=== PATIENT | female | born 1950 | race Caucasian/White ===

== ENCOUNTER 2017-06-09 20:52 | Emergency (ER) | payer BC ==
[~2017-06-09] VITALS: Ht 160 cm; Wt 66.4 kg
[2017-06-09] MEDS ORDERED: ASPIRIN 32325 MG/TAB PO (21:19)
[2017-06-09] MEDS ORDERED: CLARITIN 1010 MG/TAB PO (21:21)
[2017-06-09] MEDS ORDERED: PRILOSEC10 MG PO (21:22)
[2017-06-09 21:54] LABS: BASO # 0.1 (0.0-0.2); BASO % 0.7 % (0.0-2.0); EOS # 0.1 (0.0-0.7); EOS % 0.9 % (0-4.0); GRAN # 6.6 (1.4-6.5); GRAN % 70.6 % (42.2-75.2); HEMATOCRIT 42.9 % (37.0-47.0); HEMOGLOBIN 14.6 g/dl (12.5-16.0); LYMPH % 21.5 % (20.0-51.0); MEAN CELL VOLUME 84 fl (80.0-100.0); MEAN CORPUSCULAR HEMOGLOBIN 29 pg (27.0-31.0); MEAN CORPUSCULAR HGB CONC 34 g/dl (33.0-37.0); MEAN PLATELET VOLUME 8.8 fl (7.4-10.4); MONO # 0.6 (0.1-0.6); MONO % 5.9 % (1.7-9.3); PLATELET COUNT 249 K/mm3 (130-400); RED BLOOD COUNT 5.08 M/mm3 (4.10-5.30); REDCELL DISTRIBUTION WIDTH-CV 12.7 % (11.5-14.5)
[2017-06-09 21:59] LABS: INR 1.1 (0.8-3.0); PROTHROMBIN TIME 12.5 SECONDS (9.7-12.8)
[2017-06-09 22:25] LABS: ALBUMIN 4.1 gm/dL (3.5-5.0); BILIRUBIN,TOTAL 0.2 mg/dL (0.0-1.0); CALCIUM 9.5 mg/dL (8.4-10.2); CREATININE, serum 0.84 mg/dL (0.52-1.25); POTASSIUM 3.8 mmol/L (3.4-5.0); TOTAL PROTEIN 7.5 gm/dL (6.4-8.2)
[2017-06-09 22:45] VITALS: BP 210/92; PULSE 84; TEMP 97.3
[2017-06-09 22:54] LABS: TSH w REFLEX 7.65 uIU/mL (0.465-4.680)
== END 2017-06-09 22:50 | disposition short-term general hospital (02) ==
LOC: COL.ER 20:52
PROVIDERS: Emergency Medicine
DX: I69.393 Ataxia following cerebral infarction (principal); I10 Essential (primary) hypertension; Z79.82 Long term (current) use of aspirin
CPT/HCPCS: J7030

== ENCOUNTER 2017-06-12 13:07 | Inpatient (IN) | payer BC ==
[~2017-06-12] VITALS: Ht 160 cm; Wt 65.4 kg
[~2017-06-12 13:07] MED LIST: ASPIRIN 32325 MG/TAB PO; CLARITIN 1010 MG/TAB PO; PRILOSEC10 MG PO
[2017-06-12] MEDS ORDERED: LIPITOR20 MG PO (14:06)
[2017-06-12] MEDS ORDERED: PLAVIX 75MG TAB75 MG PO (14:08)
[2017-06-12] MEDS ORDERED: ZESTRIL2.5 MG PO (14:09)
[2017-06-12 20:27] VITALS: BP 171/81; PULSE 74; TEMP 97.4
[2017-06-12] MEDS ORDERED: LOVENOX 4040 MG/0.4 SQ ×2 (21:15→21:17)
[2017-06-13 05:12] VITALS: BP 138/71; PULSE 63; TEMP 97.7
[2017-06-13 05:37] VITALS: BP 138/61; PULSE 72; TEMP 98.4
[2017-06-13 15:35] VITALS: BP 158/71; PULSE 77; TEMP 98.4
[2017-06-14 06:20] VITALS: BP 155/72; PULSE 62; TEMP 98.1
[2017-06-14 16:30] VITALS: BP 125/73; PULSE 81; TEMP 97.8
[2017-06-15 05:33] VITALS: BP 141/61; PULSE 79; TEMP 98.2
[2017-06-15 16:59] VITALS: BP 141/66; PULSE 77; TEMP 97.4
[2017-06-16 05:49] VITALS: BP 141/78; PULSE 80; TEMP 98.4
[2017-06-16 15:51] VITALS: BP 125/64; PULSE 78; TEMP 97.6
[2017-06-17 04:41] VITALS: BP 133/60; PULSE 61; TEMP 97.7
[2017-06-17 18:00] VITALS: BP 133/60; PULSE 73; TEMP 97.8
[2017-06-18 06:01] VITALS: BP 147/71; PULSE 84; TEMP 98
[2017-06-18 15:41] VITALS: BP 129/61; PULSE 60; TEMP 98
[2017-06-18 18:12] VITALS: BP 143/67; PULSE 74; TEMP 98.5
[2017-06-19 05:47] VITALS: BP 144/54; PULSE 60; TEMP 97.3
[2017-06-19 15:05] VITALS: BP 131/70; PULSE 71; TEMP 97.9
[2017-06-20 06:00] VITALS: BP 135/62; PULSE 78; TEMP 98.3
[2017-06-20 16:26] VITALS: BP 133/59; PULSE 80; TEMP 98.4
[2017-06-21 04:19] VITALS: BP 124/68; PULSE 75; TEMP 97.9
[2017-06-21 17:20] VITALS: BP 131/50; PULSE 82; TEMP 97.5
[2017-06-22 05:34] VITALS: BP 145/73; PULSE 73; TEMP 98.4
[2017-06-22 18:41] VITALS: BP 139/62; PULSE 80; TEMP 98.5
[2017-06-23 04:23] VITALS: BP 144/52; PULSE 66; TEMP 98.5
[2017-06-23 18:00] VITALS: BP 133/75; BP 146/67; PULSE 100; TEMP 97.8; TEMP 98.2
[2017-06-24 06:00] VITALS: BP 122/57; PULSE 62; TEMP 97.6
[2017-06-24 17:18] VITALS: BP 141/73; PULSE 82; TEMP 99.7
[2017-06-24 18:04] VITALS: TEMP 98.7
[2017-06-25 06:05] VITALS: BP 127/69; PULSE 68; TEMP 98.4
[2017-06-25 07:40] VITALS: BP 141/53; PULSE 76
[2017-06-25 15:05] VITALS: BP 129/55; PULSE 78; TEMP 98.6
[2017-06-26 05:52] VITALS: BP 120/62; PULSE 69; TEMP 98
[2017-06-26 17:51] VITALS: BP 144/84; PULSE 79; TEMP 98.8
[2017-06-27 05:50] VITALS: BP 135/78; PULSE 77; TEMP 98
[2017-06-27 16:08] VITALS: BP 127/58; PULSE 79; TEMP 97.6
[2017-06-28 05:42] VITALS: BP 142/65; PULSE 84; TEMP 98.1
[2017-06-28 15:06] VITALS: BP 125/70; PULSE 82; TEMP 99
[2017-06-29 06:10] VITALS: BP 129/57; PULSE 71; TEMP 98.4
[2017-06-29 16:35] VITALS: BP 105/82; PULSE 86; TEMP 97.8
[2017-06-30 04:36] VITALS: BP 128/62; PULSE 94; TEMP 98.5
[2017-06-30 15:25] VITALS: BP 100/77; PULSE 74; TEMP 97.8
[2017-07-01 06:00] VITALS: BP 125/66; PULSE 74; TEMP 98.5
[2017-07-01] MEDS ORDERED: PLAVIX 75MG TAB75 MG PO (10:04)
[2017-07-01] MEDS ORDERED: LIPITOR20 MG PO (10:05)
[2017-07-01] MEDS ORDERED: ZESTRIL2.5 MG PO (10:05)
[2017-07-01] MEDS ORDERED: ASPIRIN 32325 MG/TAB PO (10:05)
[2017-07-01] MEDS ORDERED: FLONASE NASAL S16 GM NS (10:06)
[2017-07-01] MEDS ORDERED: ASPIRIN 81M81 MG/TA2 PO (10:24)
== END 2017-07-01 11:30 | disposition home or self-care (01) | DRG 57 ==
DX: I69.354 Hemiplegia and hemiparesis following cerebral infarction affecting left non-dominant side (principal); I69.328 Other speech and language deficits following cerebral infarction; I10 Essential (primary) hypertension; R13.10 Dysphagia, unspecified
CPT/HCPCS: 99232-AI; 99239; J1650

== ENCOUNTER 2017-07-13 10:39 | Emergency (ER) | payer BC ==
[~2017-07-13] VITALS: Ht 160 cm; Wt 63.6 kg
[~2017-07-13 10:39] MED LIST changes: +ASPIRIN 81M81 MG/TA2 PO; +FLONASE NASAL S16 GM NS; +LIPITOR20 MG PO; +LOVENOX 4040 MG/0.4 SQ; +PLAVIX 75MG TAB75 MG PO; +ZESTRIL2.5 MG PO
[2017-07-13 10:45] VITALS: TEMP 99
[2017-07-13 11:32] LABS: BASO # 0.1 (0.0-0.2); BASO % 0.8 % (0.0-2.0); EOS # 0.1 (0.0-0.7); GRAN # 8.1 (1.4-6.5); GRAN % 76.6 % (42.2-75.2); HEMATOCRIT 44.8 % (37.0-47.0); LYMPH # 1.6 (1.2-3.4); LYMPH % 14.9 % (20.0-51.0); MEAN CELL VOLUME 86 fl (80.0-100.0); MEAN CORPUSCULAR HEMOGLOBIN 29 pg (27.0-31.0); MEAN CORPUSCULAR HGB CONC 34 g/dl (33.0-37.0); MONO # 0.6 (0.1-0.6); MONO % 5.8 % (1.7-9.3); PLATELET COUNT 223 K/mm3 (130-400); RED BLOOD COUNT 5.21 M/mm3 (4.10-5.30); REDCELL DISTRIBUTION WIDTH-CV 13.2 % (11.5-14.5)
[2017-07-13 11:37] LABS: PROTHROMBIN TIME 11.4 SECONDS (9.7-12.8)
[2017-07-13 11:40] LABS: PARTIAL THROMBOPLASTIN TIME 31.3 SECONDS (26.0-37.0)
[2017-07-13] MEDS ORDERED: XYZAL5 MG PO (11:44)
[2017-07-13] MEDS ORDERED: TYLENOL 325MG325 MG PO (11:46)
[2017-07-13 11:50] LABS: ALANINE AMINOTRANSFERASE 46 U/L (9-52); ALKALINE PHOSPHATASE 97 U/L (50-136); ANION GAP 11 mmol/L (7-16); AST,SGOT 26 U/L (15-37); BILIRUBIN,TOTAL 0.4 mg/dL (0.0-1.0); BLOOD UREA NITROGEN 16 mg/dL (7-17); CALCIUM 9.8 mg/dL (8.4-10.2); CARBON DIOXIDE 28 mmol/L (22-30); CHLORIDE 103 mmol/L (98-107); CREATININE, serum 0.77 mg/dL (0.52-1.25); GLUCOSE 105 mg/dL (74-106); SODIUM 141 mmol/L (137-145); TOTAL PROTEIN 7.2 gm/dL (6.4-8.2)
[2017-07-13 11:53] LABS: C-REACTIVE PROTEIN < 0.5 mg/dL (0.0-0.9)
[2017-07-13 12:00] LABS: TROPONIN-I < 0.012 ng/mL (0.000-0.034)
[2017-07-13] MEDS ORDERED: PRINIVIL10 MG PO (13:28)
[2017-07-13 13:43] VITALS: BP 1433/66; PULSE 74
== END 2017-07-13 13:46 | disposition home or self-care (01) ==
LOC: COL.ER 10:39
PROVIDERS: Emergency Medicine
DX: I65.21 Occlusion and stenosis of right carotid artery (principal); R03.0 Elevated blood-pressure reading, without diagnosis of hypertension; H53.9 Unspecified visual disturbance; Z86.73 Personal history of transient ischemic attack (TIA), and cerebral infarction without residual deficits; Z79.51 Long term (current) use of inhaled steroids; Z79.02 Long term (current) use of antithrombotics/antiplatelets; Z79.82 Long term (current) use of aspirin

== ENCOUNTER 2018-05-16 15:48 | Emergency (ER) | payer MEDICARE, BC ==
[~2018-05-16] VITALS: Ht 160 cm; Wt 68.2 kg
[~2018-05-16 15:48] MED LIST changes: +PRINIVIL10 MG PO; +TYLENOL 325MG325 MG PO; +XYZAL5 MG PO
[2018-05-16 16:03] VITALS: TEMP 98.5
[2018-05-16] MEDS ORDERED: PRILOSEC 20MG20 MG PO (16:26)
[2018-05-16] MEDS ORDERED: ASPIRIN E.C. 8181 MG PO (16:26)
[2018-05-16] MEDS ORDERED: PRINIVIL10 MG PO (16:26)
[2018-05-16] MEDS ORDERED: LIPITOR 40MG TA40 MG PO (16:27)
[2018-05-16] MEDS ORDERED: XYZAL5 MG PO (16:28)
[2018-05-16 16:42] LABS: BASO # 0.1 (0.0-0.2); BASO % 0.9 % (0.0-2.0); EOS # 0.2 (0.0-0.7); EOS % 1.8 % (0-4.0); GRAN # 5.7 (1.4-6.5); HEMATOCRIT 44.8 % (37.0-47.0); HEMOGLOBIN 14.9 g/dl (12.5-16.0); LYMPH # 2.4 (1.2-3.4); LYMPH % 26.7 % (20.0-51.0); MEAN CELL VOLUME 86 fl (80.0-100.0); MEAN CORPUSCULAR HEMOGLOBIN 29 pg (27.0-31.0); MEAN CORPUSCULAR HGB CONC 33 g/dl (33.0-37.0); MEAN PLATELET VOLUME 9.2 fl (7.4-10.4); MONO # 0.7 (0.1-0.6); MONO % 7.3 % (1.7-9.3); PLATELET COUNT 240 K/mm3 (130-400); REDCELL DISTRIBUTION WIDTH-CV 12.5 % (11.5-14.5)
[2018-05-16 17:03] LABS: ALBUMIN 4.4 gm/dL (3.5-5.0); BILIRUBIN,TOTAL 0.4 mg/dL (0.0-1.0); CALCIUM 9.6 mg/dL (8.4-10.2); CREATININE, serum 0.8 mg/dL (0.52-1.25); POTASSIUM 3.9 mmol/L (3.4-5.0); TOTAL PROTEIN 7.5 gm/dL (6.4-8.2)
[2018-05-16 19:10] VITALS: BP 118/68; PULSE 74
== END 2018-05-16 19:10 | disposition home or self-care (01) ==
LOC: COL.ER 15:48
PROVIDERS: Emergency Medicine
DX: I10 Essential (primary) hypertension (principal); E78.5 Hyperlipidemia, unspecified; Z86.73 Personal history of transient ischemic attack (TIA), and cerebral infarction without residual deficits; Z79.82 Long term (current) use of aspirin